=== PATIENT | female | born 1950 | race Caucasian/White ===

== ENCOUNTER 2019-05-26 02:37 | Emergency (ER) | payer MEDICARE ==
[~2019-05-26] VITALS: Ht 162.6 cm; Wt 99.1 kg
[~2019-05-26 02:37] MED LIST: ADV250 IH; CYCL10 PO; ESOM20CA31 PO; LORA-1000 PO; PRED5 PO; VALS80TA2 PO
[2019-05-26 02:51] VITALS: BP 164/99
[2019-05-26] MEDS ORDERED: OSCD250 PO (03:08)
[2019-05-26] MEDS ORDERED: NAPR-1025 PO (03:08)
[2019-05-26] MEDS ORDERED: HYDR-3709 PO (03:08)
[2019-05-26] MEDS ORDERED: ALBU8HFA IH (03:08)
[2019-05-26] MEDS ORDERED: MV,C400T2 PO (03:08)
[2019-05-26 03:09] LABS: GLUCOSE,POINT OF CARE 118 MG/DL (70-110)
== END 2019-05-26 03:47 | disposition left against medical advice (07) ==
LOC: EMS 02:37
DX: R42 Dizziness and giddiness (principal); Z53.21 Procedure and treatment not carried out due to patient leaving prior to being seen by health care provider